=== PATIENT | female | born 1960 | race Caucasian/White ===

== ENCOUNTER 2021-02-27 12:17 | Outpatient (CLI) | payer BC, SELFPAY ==
--- NOTE | ~2021-02-27 | XR_ITS ---
XR wrist LT min 3V DATE: 02/27/2021 12:46 INDICATION: Fall. Left wrist injury, pain TECHNIQUE: 4 views COMPARISON: None FINDINGS: There is prominent osteoarthritic change at the first carpometacarpal joint. Osteoarthritic changes also noted at metacarpophalangeal and particularly interphalangeal joints, especially at the interphalangeal joint of the first digit and proximal and distal interphalangeal joints of the third digit and distal interphalangeal joint of the second digit. There is fusion of the DIP joints of the fourth and fifth digits. No fracture or dislocation, periosteal reaction or bone destruction is detected. IMPRESSION: Polyarticular osteoarthritis Reviewed, dictated and finalized at location B.
== END 2021-02-27 12:18 | disposition home or self-care (01) ==
LOC: ANHIMG 12:23
PROVIDERS: PCP Nurse Practitioner Adult Health; Visit Provider Nurse Practitioner Adult Health
DX: M25.532 Pain in left wrist (principal); M19.032 Primary osteoarthritis, left wrist
CPT/HCPCS: 73110